=== PATIENT | female | born 1970 | race Caucasian/White ===

== ENCOUNTER → 2020-02-24 08:47 | Outpatient (BNVA) | payer BC, SELFPAY | PROVIDERS: PCP Internal Medicine Pulmonary Disease; Referring Provider Internal Medicine Pulmonary Disease; Visit Provider Surgery | DX: Z76.89 Persons encountering health services in other specified circumstances (principal) ==

== ENCOUNTER → 2020-04-23 09:55 | Outpatient (BNVA) | payer BC, SELFPAY | PROVIDERS: PCP Internal Medicine Pulmonary Disease; Referring Provider Internal Medicine Pulmonary Disease; Visit Provider Surgery | DX: Z76.89 Persons encountering health services in other specified circumstances (principal) ==

== ENCOUNTER 2020-04-30 09:41 | Outpatient (REF) | payer BC, SELFPAY ==
[2020-04-30 10:21] LABS: MANUAL DIFF FLAG NO
[2020-04-30 10:26] LABS: Basophils Percent Auto 0.4 % (0-2); Eosinophils Percent Auto 0.5 % (0-4); Hematocrit 36.2 % (37-47); Hemoglobin 11.2 g/dl (12.0-16.0); Imm Gran Abs Auto 0.02 X10*3/uL (0.00-0.03); Imm Gran Pct Auto 0.4 % (0.0-0.4); Lymphocytes Percent Auto 35.2 % (20-40); Mean Corpuscular HGB Conc 30.9 g/dl (31.0-35.0); Mean Corpuscular Hemoglobin 22.5 pg (27.0-33.0); Mean Corpuscular Volume 72.7 fL (80-98); Mean Platelet Volume 11.3 fL (9.4-12.3); Monocytes Absolute Auto 0.3 X10*3/uL (0.1-1.2); Neutrophils Absolute Auto 3.3 X10*3/uL (2.0-8.3); Neutrophils Percent Auto 57.5 % (45-73); Platelet Count 269 X10*3/uL (160-400); Red Blood Count 4.98 X10*6/uL (4.20-5.50); Red Cell Distribution Width 14.2 % (11.0-16.0); White Blood Count 5.7 X10*3/uL (4.8-10.8)
[2020-04-30 10:57] LABS: Alanine Aminotransferase 16 U/L (0-31); Albumin Level 3.7 g/dL (3.5-5.0); Alkaline Phosphatase 25 U/L (39-117); Aspartate Amino Transferase 15 U/L (5-31); Bilirubin Total 0.6 mg/dL (0.0-1.0); Blood Urea Nitrogen 10 mg/dL (9-16); Calcium 9.7 mg/dL (8.4-10.2); Cholesterol 153 mg/dL; Estimated Glomerular Filt Rate > 60; Glucose Fasting 92 mg/dL (60-99); HDL Cholesterol 47 mg/dL; Iron 91 mcg/dL (30-160); LDL Cholesterol Calculated 97 mg/dl; Percent Iron Saturation 33 % (15-50); Total Iron Binding Capacity 273 mcg/dL (228-428); Total Protein 6.2 g/dL (6.5-8.0); Triglycerides 45 mg/dL; Unsaturated Iron Binding 182 ug/dL
[2020-04-30 11:15] LABS: Vitamin D 25-OH Total 39.4 ng/mL (>30)
[2020-04-30 11:19] LABS: Anion Gap 8 (12-20); Carbon Dioxide 29 mmol/L (22-29); Chloride 106 mmol/L (96-108); Potassium 4.4 mmol/l (3.3-5.1); Sodium 139 mmol/L (135-145)
[2020-04-30 11:35] LABS: Vitamin B12 573 pg/mL (200-900)
[2020-05-03 17:57] LABS: Zinc 76 mcg/dL (60-130)
[2020-05-05 10:22] LABS: Vitamin A 48 mcg/dL (38-98)
[2020-05-06 12:03] LABS: Vitamin B1 20 nmol/L (8-30)
== END 2020-04-30 09:42 | disposition home or self-care (01) ==
LOC: HO.LAB 09:41
PROVIDERS: Visit Provider Surgery
DX: Z01.818 Encounter for other preprocedural examination (principal)
CPT/HCPCS: 36415; 80053; 80061; 82306; 82607; 83540; 84425; 84443; 84590; 84630; 85025

== ENCOUNTER → 2020-06-05 09:29 | Outpatient (BNVA) | payer BC, SELFPAY | PROVIDERS: PCP Internal Medicine Pulmonary Disease; Visit Provider Dietitian, Registered ==

== ENCOUNTER → 2020-06-11 08:19 | Outpatient (BNVA) | payer BC, SELFPAY | PROVIDERS: PCP Internal Medicine Pulmonary Disease; Visit Provider Dietitian, Registered ==

== ENCOUNTER → 2020-06-18 08:16 | Outpatient (BNVA) | payer BC, SELFPAY | PROVIDERS: PCP Internal Medicine Pulmonary Disease; Visit Provider Dietitian, Registered ==

== ENCOUNTER → 2020-08-03 10:19 | Outpatient (BNVA) | payer BC, SELFPAY | PROVIDERS: PCP Internal Medicine Pulmonary Disease; Visit Provider Surgery ==

== ENCOUNTER → 2020-11-02 10:11 | Outpatient (BNVA) | payer OTHER, SELFPAY | PROVIDERS: PCP Internal Medicine Pulmonary Disease; Referring Provider Internal Medicine Pulmonary Disease; Visit Provider Surgery ==

== ENCOUNTER 2020-12-14 08:31 | Outpatient (REF) | payer OTHER, SELFPAY ==
[2020-12-14 10:13] LABS: MANUAL DIFF FLAG NO
[2020-12-14 10:19] LABS: Basophils Percent Auto 0.7 % (0-2); Eosinophils Percent Auto 0.9 % (0-4); Hematocrit 34.9 % (37-47); Hemoglobin 10.8 g/dl (12.0-16.0); Imm Gran Abs Auto 0.01 X10*3/uL (0.00-0.03); Imm Gran Pct Auto 0.2 % (0.0-0.4); Lymphocytes Percent Auto 44.5 % (20-40); Mean Corpuscular HGB Conc 30.9 g/dl (31.0-35.0); Mean Corpuscular Hemoglobin 22.4 pg (27.0-33.0); Mean Corpuscular Volume 72.4 fL (80-98); Mean Platelet Volume 10.6 fL (9.4-12.3); Monocytes Absolute Auto 0.3 X10*3/uL (0.1-1.2); Monocytes Percent Auto 7.3 % (2-11); Neutrophils Absolute Auto 2.1 X10*3/uL (2.0-8.3); Neutrophils Percent Auto 46.4 % (45-73); Platelet Count 252 X10*3/uL (160-400); Red Blood Count 4.82 X10*6/uL (4.20-5.50); Red Cell Distribution Width 14.7 % (11.0-16.0); White Blood Count 4.5 X10*3/uL (4.8-10.8)
[2020-12-14 10:27] LABS: Estimated Average Glucose 100 mg/dL; Hemoglobin A1c % 5.1 %
[2020-12-14 11:00] LABS: Alanine Aminotransferase 9 U/L (0-31); Albumin Level 3.6 g/dL (3.5-5.0); Alkaline Phosphatase 39 U/L (39-117); Anion Gap 10 (12-20); Aspartate Amino Transferase 13 U/L (5-31); Bilirubin Total 0.6 mg/dL (0.0-1.0); Blood Urea Nitrogen 14 mg/dL (9-16); C Reactive Protein 0.02 mg/dL (< or = 0.50); Calcium 9.5 mg/dL (8.4-10.2); Carbon Dioxide 25 mmol/L (22-29); Chloride 109 mmol/L (96-108); Cholesterol 172 mg/dL; Estimated Glomerular Filt Rate > 60; Glucose Fasting 90 mg/dL (60-99); HDL Cholesterol 63 mg/dL; Iron 80 mcg/dL (30-160); LDL Cholesterol Calculated 103 mg/dl; Percent Iron Saturation 30 % (15-50); Potassium 4.5 mmol/L (3.3-5.1); Sodium 139 mmol/L (135-145); Total Iron Binding Capacity 263 mcg/dL (228-428); Total Protein 6.2 g/dL (6.5-8.0); Triglycerides 33 mg/dL; Unsaturated Iron Binding 183 ug/dL
[2020-12-14 11:08] LABS: Thyroid Stimulating Hormone 0.92 uIU/mL (0.32-4.0); Vitamin D 25-OH Total 27.5 ng/mL (>30)
[2020-12-14 11:38] LABS: Vitamin B12 436 pg/mL (200-900)
[2020-12-19 00:31] LABS: Zinc 77 mcg/dL (60-130)
[2020-12-20 12:40] LABS: Vitamin B1 14 nmol/L (8-30)
[2020-12-21 00:27] LABS: Vitamin A 41 mcg/dL (38-98)
== END 2020-12-14 08:32 | disposition home or self-care (01) ==
LOC: HO.LAB 08:31
PROVIDERS: PCP Internal Medicine Pulmonary Disease; Visit Provider Surgery
DX: Z01.818 Encounter for other preprocedural examination (principal); K91.2 Postsurgical malabsorption, not elsewhere classified; Z90.3 Acquired absence of stomach [part of]
CPT/HCPCS: 36415; 80053; 80061; 82306; 82607; 83036; 83540; 84425; 84443; 84590; 84630; 85025; 86140

== ENCOUNTER → 2021-02-08 08:42 | Outpatient (BNVA) | payer OTHER, SELFPAY | PROVIDERS: PCP Internal Medicine Pulmonary Disease; Visit Provider Surgery ==

== ENCOUNTER → 2021-04-22 13:09 | Outpatient (BNVA) | payer OTHER, SELFPAY | PROVIDERS: PCP Internal Medicine Pulmonary Disease; Visit Provider Dietitian, Registered | DX: E66.9 Obesity, unspecified (principal); Z68.31 Body mass index [BMI] 31.0-31.9, adult | CPT/HCPCS: 97803 ==

== ENCOUNTER → 2021-06-24 13:13 | Outpatient (BNVA) | payer OTHER, SELFPAY | PROVIDERS: PCP Internal Medicine Pulmonary Disease; Visit Provider Physician Assistant Surgical ==

== ENCOUNTER → 2021-08-05 08:10 | Outpatient (BNVA) | payer OTHER, SELFPAY | PROVIDERS: PCP Internal Medicine Pulmonary Disease; Visit Provider Physician Assistant Surgical | DX: E66.9 Obesity, unspecified (principal) ==

== ENCOUNTER → 2021-08-30 08:09 | Outpatient (BNVA) | payer OTHER, SELFPAY | PROVIDERS: PCP Internal Medicine Pulmonary Disease; Visit Provider Physician Assistant Surgical | DX: E66.9 Obesity, unspecified (principal) ==

== ENCOUNTER → 2021-08-30 08:09 | Outpatient (BNVA) | payer OTHER, SELFPAY | PROVIDERS: PCP Internal Medicine Pulmonary Disease; Visit Provider Physician Assistant Surgical | DX: E66.9 Obesity, unspecified (principal) ==